=== PATIENT | male | born 1965 | race Two or more races ===

== ENCOUNTER 2022-05-01 08:27 | Outpatient (CLI) | payer OTHER | END 2022-05-01 08:38 | disposition home or self-care (01) | LOC: MRI 08:27 | PROVIDERS: ATTEND Neuromusculoskeletal Medicine & OMM | DX: I72.9 Aneurysm of unspecified site (principal); I65.1 Occlusion and stenosis of basilar artery; I65.09 Occlusion and stenosis of unspecified vertebral artery; I65.29 Occlusion and stenosis of unspecified carotid artery; Q28.2 Arteriovenous malformation of cerebral vessels | CPT/HCPCS: 70544 ==